=== PATIENT | male | born 1945 | race Caucasian/White ===

== ENCOUNTER → 2023-10-22 10:40 | Outpatient (REF) | payer OTHER, SELFPAY | LOC: RAD 10:40 | PROVIDERS: ATTENDING PHYSICIAN Internal Medicine Critical Care Medicine; FAMILY PHYSICIAN Family Medicine | DX: R05.3 Chronic cough (principal); J32.9 Chronic sinusitis, unspecified | CPT/HCPCS: 70486 ==

== ENCOUNTER 2023-11-15 16:35 | Inpatient (IN) | payer OTHER, SELFPAY ==
[2023-11-13] VITALS (7 sets, daily range): BP systolic 126–138; BP diastolic 66–76; BMI 27.8
[2023-11-13 17:23] LABS: % Basophils 0.3 % (0-2); % Immature Granulocytes 0.5 % (0-0.5); % Monocytes 5.7 % (1.7-9.3); % Neutrophils 84.5 % (42.2-75.2); Absolute Immature Granulocytes 0.1 10^3/uL (0-0.05); Absolute Monocytes 0.7 10^3/uL (0.1-0.6); Absolute Neutrophils 9.7 10^3/uL (1.4-6.5); Hematocrit 49.3 % (39.0-52.0); Hemoglobin 16.2 g/dL (13.0-18.0); Mean Corp Hgb Conc. 32.9 g/dL (33.0-37.0); Mean Corpuscular Volume 88.4 fL (80.0-94.0); Mean Platelet Volume 9.7 fL (7.4-10.4); Nucleated Red Blood Cells % 0 % (-); Platelet Count 284 10^3/uL (130-400); Red Blood Cell Count 5.58 10^6/uL (4.70-6.10); White Blood Cell Count 11.5 10^3/uL (4.8-10.8)
--- NOTE | 2023-11-13 17:23 | ED.GENMED ---
History of Present Illness
General
Chief Complaint: Dizziness
Source: patient and family
Exam Limitations: none
Time Seen by Provider: 11/13/23 17:14
Travel History
Have you had any contact with someone who has COVID-19?: No
Do you have any symptoms of coronavirus? Fever > 100 degrees, chills, cough, shortness of breath, sore throat, loss of taste or smell, muscle aches, or headache?: No
History of Present Illness
History of Present Illness:
See MDM
Past History
Past History
ED Past Medical History: CAD, COPD and HTN
ED Past Surgical History: Cardiac (Bypass)
Social History
Tobacco: Non-smoker
Alcohol: None
Phy Exam
Physical Exam
Physical Exam:
See MDM
Course
Orders/Labs/Results
Orders:
Orders
11/13/23 16:26
Electrocardiogram (*1) Urgent
Reason for Study: Chest Pain
EKG- Treatment ONCE
11/13/23 17:11
Complete Blood Count/With Diff Urgent
Comprehensive Metabolic Panel Urgent
Troponin I Urgent
11/13/23 17:21
0.9% Sodium Chloride 1000 ml [Nss] 1,000 ml IV BOLUS
11/13/23 17:22
CT Head W/o Iv Contrast Urgent
Comment:
Reason For Exam: Dizziness
11/13/23 17:23
Meclizine [Antivert] 25 mg PO NOW STA
11/13/23 18:22
Potassium Chloride [KCl] 40 meq PO NOW STA
11/13/23 18:26
Ondansetron Injectable [Zofran] 4 mg IV NOW STA
11/13/23 18:27
diazePAM [Valium Injection] 2 mg IV NOW STA
Abnormal Lab Results
11/13/23
17:11
WBC 11.5 H 10^3/uL
(4.8-10.8)
MCHC 32.9 L g/dL
(33.0-37.0)
Abs Immat Gran (auto) 0.1 H 10^3/uL
(0-0.05)
Absolute Neuts (auto) 9.7 H 10^3/uL
(1.4-6.5)
Absolute Lymphs (auto) 1.0 L 10^3/uL
(1.2-3.4)
Absolute Monos (auto) 0.7 H 10^3/uL
(0.1-0.6)
Neutrophils % 84.5 H %
(42.2-75.2)
Lymphocytes % 9.0 L %
(20.5-51.1)
Potassium 3.3 L mmol/L
(3.5-5.1)
Chloride 94 L mmol/L
(98-107)
Carbon Dioxide 33 H mmol/L
(22-30)
BUN 28 H mg/dl
(9-20)
Glucose 205 H mg/dl
(70-99)
11/13/23 17:11
11/13/23 17:11
Vital Signs
Initial and Last Documented VS:
Initial Vital Signs
Temp Pulse Resp BP Pulse Ox
97.6 F 88 20 132/68 92
11/13/23 16:20 11/13/23 16:20 11/13/23 16:20 11/13/23 16:20 11/13/23 16:20
Last Documented Vital Signs
Temp Pulse Resp BP Pulse Ox
97.6 F 88 20 132/68 92
11/13/23 16:20 11/13/23 16:20 11/13/23 16:20 11/13/23 16:20 11/13/23 16:20
MDM/Problems Addressed
Differential Diagnosis Includes:
HPI and MDM Narrative:
78-year-old male presenting with dizziness. He noted Wednesday. Patient states he took some of his normal medicine and had 2 alcoholic drinks. He states ever since then, his dizziness has gotten worse. It is worse with certain head movements.
It is worse when he stands up quickly. On exam, patient is dehydrated. He has very dry mucous membranes. He acknowledges that he has not been eating or drinking since he has been dizzy. He does not think he has a history of vertigo.
He has normal finger-nose. However, patient is very symptomatic with eyes open and with eyes closed. Will obtain CT head and provide IV fluids.
Physical exam
General: Well appearing and non-toxic
HEENT: protecting airway. Dry mucous membranes. EOMI. Right TM cerumen impaction
Neck: supple
CV: No evidence of cyanosis. Regular rate and rhythm
Resp: No accessory muscle use
Abd: Non-distended
Extremities: No deformities.
Neuro: alert. Normal finger-nose bilaterally
Psych: Normal affect
Skin: Intact
Problems Addressed including Acute and Chronic Conditions affecting care:
1. Dizziness
Acuity: acute
Prognosis: stable
Details: Given symptoms little worse with head movement, will obtain CT head and provide meclizine.
2. Dehydration
Acuity: acute
Prognosis: stable
Details: Will start IV fluid
3. Hypokalemia
Acuity: acute
Prognosis: stable
Details: Likely in the setting of poor p.o. intake. Will replete orally
Updates
6:30 PM after IV fluids and meclizine, patient states he is not better. We did attempt to ambulate the patient and he is extremely unsteady on his feet. Will give Zofran for nausea and will give dose of IV Valium. Given his persistent symptoms,
will admit
Differential Diagnosis (but not limited to): CVA, dehydration, vertigo
Testing considered: CT angio head and neck
Drug therapy (if applicable): OTC meds, please see d/c instruction regarding Rx drugs
Amount and/or Complexity of Data Reviewed
Clinical info obtained from: Patient
External data reviewed: N/A
Labs I independently reviewed (but not limited to): HypoK, Hyperglycemia
Radiology: The CT scan was personally and independently reviewed. In addition, official CT report reviewed.
Pulse Ox: not hypoxic
EKG independently reviewed: Sinus rhythm, right bundle branch block, no STEMI
[employer] Supervisor: Sinus rhythm
Critical Care: N/A
Risk of Complication:
Social Determinants of health: Good social support
Discussed with other providers: Hospitalist
Escalation of Care includes Admit/Obs: Given the persistent dizziness and unsteady gait, will admit
Occasional wrong word or 'sound a like' substitutions may have occurred due to the inherent limitations of voice recognition software. Read the chart carefully and recognize, using context, where substitutions have occurred.
*Critical Care Note
Total Time (30-74mins, 75-104mins- exclusive of procedures): Not Applicable
ED Attending Note
-
Portions of this chart may have been created with voice recognition software.� Occasional wrong word or��sound alike� substitutions may have occurred due to the inherent limitations of voice recognition software.
Discharge Plan
Departure
Patient Disposition: Admit
Date of Disposition: 11/13/23
Time of Disposition: 18:29
Admit to: Med/Surg
Presentation/result/management discussed w/ accepting MD/DO: Hospitalist
Discharge Problem:
Dizziness, Hypokalemia, Acute hyperglycemia
Referrals:
Neri Bui DO [Family Provider] -
Interventions
Interventions:
*Risk Screen - Suicide Last Done: 11/13/23 16:20
*General Assessment Last Done: 11/13/23 16:20
*Neglect/Abuse Screening Last Done: 11/13/23 16:20
Discharge Date and Time
Print Language: [place] CITIZ[place]
[2023-11-13] MEDS: ANTIVERT 25 MG PO (17:30)
[2023-11-13] MEDS: NSS 1000 IV (17:32)
[2023-11-13 17:43] LABS: ALT (SGPT) 24 U/L (0-50); AST (SGOT) 30 U/L (17-59); Albumin 4.4 g/dl (3.5-5.0); Alkaline Phosphatase 61 U/L (38-126); Blood Urea Nitrogen 28 mg/dl (9-20); Calcium 9.7 mg/dl (8.4-10.2); Carbon Dioxide 33 mmol/L (22-30); Chloride 94 mmol/L (98-107); Glucose 205 mg/dl (70-99); Potassium 3.3 mmol/L (3.5-5.1); Sodium 140 mmol/L (135-145); Total Bilirubin 1.1 mg/dl (0.2-1.3); Total Protein 7.8 g/dl (6.3-8.2); eGFR > 60.00
[2023-11-13 17:55] LABS: Troponin I 0.012 ng/ml
[2023-11-13] MEDS: KCL 40 MEQ PO (18:32)
[2023-11-13] MEDS: VALIUM INJECTION 2 MG IV ×2 (18:33→20:22)
[2023-11-13] MEDS: ZOFRAN 4 MG IV (18:33)
--- NOTE | 2023-11-13 19:23 | PHANOTE ---
Addendum entered by Kulwant Ascencio 11/13/23 21:18:
11/13/2023, med rec tech, the medication that the pt. was referring to was Prevagen per pt.
Addendum entered by Kulwant Ascencio 11/13/23 19:26:
11/13/2023, med rec tech, last time pt. took this med. was Wednesday (11/10/2023) per pt.
Original Note:
11/13/2023, med rec tech, spoke to pt. to obtain their med. history; per pt., he states that he was just prescribed a diabetes med. that he takes once daily in the morning; pt. states that he takes one 10 mg tablet of this med. in the morning and he
believes that it starts with the letter 'f' or 'p' but is unsure; pt. has no pharmacy fill data and this med. is not in [facility].
--- NOTE | 2023-11-13 20:06 | HPS.HSE ---
Family Physician
-
Family Physician: Neri Bui
Chief Complaint
-
Dizziness
History of Present Illness
Patient is a 78y M with PMH significant for ASCVD, hypertension and DM-II who presents to ED complaining of dizziness. Patient states that he developed sudden onset of dizziness, room spinning, unsteady gait on Wednesday evening. He notes that
his symptoms have persisted since that time - worse with sitting upright or standing. Best when lying supine. He does report dizzy sensation with lying in either recumbent position as well. He had associated N/V x 1 episode on . None
since. He denies any associated headache, numbness, tingling, weakness, etc. He denies falling, but states that he feels like he will fall if he attempts to stand / ambulate.
Patient denies any prior history of similar symptoms.
Patient states that he took two gabapentin tablets on Wednesday evening and had two alcoholic drinks shortly thereafter. He believes this may have triggered his symptoms. However, he has noted no improvement since that time - despite no further
gabapentin or alcohol.
Patient has had chronic cough x 4 years for which he is followed by Pulmonary.
In addition to gabapentin, he was recently prescribed azithromycin [id number].
Medical History
Past Medical History
Past Medical History: Reports Other
Additional Past Medical History:
ASCVD
Hypertension
COPD
DM-II
Chronic Cough
Past Surgical History: Reports Other
Additional Past Surgical History:
CABG x 2
Herniorrhaphy
Social History
Tobacco: Former Smoker (Quit smoking 20 years ago. Approx 30 pack years total use.)
Alcohol: Occasional (Not daily / regular use.)
Drug: None
Family History
Family History: Diabetes
Allergies / Home Medications
Allergies reflects when Allergies were last updated in [facility].
Home Medications with original date entered in [facility]
Allergy/Medication List:
Allergies
Allergy/AdvReac Type Severity Reaction Status Date / Time
Sulfa (Sulfonamide Allergy Severe Anaphylaxis Verified 11/13/23 20:12
Antibiotics)
Home Medications
Tresiba Flextouch 45 unit SC HS 11/13/23
amlodipine 5 mg tablet 5 mg PO HS 11/13/23
azithromycin 250 mg tablet 250 mg PO Q48H@2200 11/13/23
budesonide 0.5 mg/2 mL suspension for nebulization 0.5 mg inhalation R DAILY 11/13/23
chlorthalidone 25 mg tablet 25 mg PO DAILY 11/13/23
fluticasone fur. 200 mcg-umeclid 62.5 mcg-vilant 25 mcg inhalat.powder (Trelegy Ellipta) 1 inh inhalation R DAILY 11/13/23
gabapentin 100 mg capsule 200 mg PO HS 11/13/23
glipizide 5 mg tablet, extended release 24 hr 5 mg PO HS 11/13/23
metformin 500 mg tablet 1,000 mg PO BID 11/13/23
montelukast 10 mg tablet 10 mg PO HS 11/13/23
omeprazole 20 mg capsule,delayed release 20 mg PO HS 11/13/23
pravastatin 40 mg tablet 40 mg PO HS 11/13/23
tadalafil 20 mg tablet 20 mg PO DAILY PRN ED 11/13/23
Review of Systems
-
History Source: Patient
A 12 point ROS was completed and negative except as noted: Yes
Constitutional: Reports Fatigue; Denies Fever or Chills
EENT: Denies Sore Throat or Runny Nose
Respiratory: Reports Cough; Denies Hemoptysis or Trouble Breathing
Cardiac: Denies Chest Pain or Palpitations
Abdomen/GI: Reports Nausea and Vomiting; Denies Abdominal Pain, Diarrhea, Constipated, Bloody Stools, Black Stools or Anorexia
: Denies Dysuria, Frequency or Flank Pain
Musculoskeletal: Denies Joint Pain or Edema
Neurological: Reports Dizzy; Denies Headache, Weakness or Numbness
Psych: Denies Depression or Anxiety
Physical Exam
Vital Signs
Vital Signs
Temp Pulse Resp BP Pulse Ox
97.6 F 107 20 138/73 98
11/13/23 16:20 11/13/23 19:38 11/13/23 19:38 11/13/23 19:38 11/13/23 19:38
Physical Exam
General: Other (78y M in no acute distress.)
HEENT: Moist mucous membranes, PERRLA and Other (No nystagmus appreciated on exam. Pos subjective dizziness with upright posture.)
Respiratory: Clear; No Wheezes, Rales or Rhonchi
Cardiac: S1/S2 and Irregular Rhythm; No Murmur
GI: Soft, Non Tender, Non Distended and Normal Bowel Sounds
Musculoskeletal: No Clubbing, No Cyanosis and No Edema
Neuro: AO x 3 and Nonfocal/grossly intact
Psych: No Anxious or Depressed
Laboratory Results
-
11/13/23 17:11
11/13/23 17:11
Laboratory Results
Total Bilirubin 1.1 mg/dl (0.2-1.3) 11/13/23 17:11
AST 30 U/L (17-59) 11/13/23 17:11
ALT 24 U/L (0-50) 11/13/23 17:11
Alkaline Phosphatase 61 U/L (38-126) 11/13/23 17:11
Troponin I 0.012 ng/ml 11/13/23 17:11
Impression/Plan
-
A/P: Patient is a 78y M with PMH significant for ASCVD, COPD and DM-II who presents to ED complaining of dizziness x 4 days.
Dizziness / Vertigo
- Observe overnight for further evaluation and treatment.
- Persistent dizziness / room spinning sensation despite meclizine / Valium in the ED.
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
- Check MR brain in the AM. Neuro eval if any noted abnormality.
- PT / OT evaluations.
- Continue supportive care including meclizine / Valium / IVFs, etc.
- Follow for clinical improvement.
Sinus Arrhythmia
ASCVD
- EKG with sinus arrhythmia. No evidence of acute ischemia.
- History of CAD with prior CABG but has had no follow-up in the past 20 years.
- QTc is somewhat prolonged and will hold further azithromycin / avoid other QT prolonging medications.
- Check Echo.
- Monitor on telemetry.
COPD
Chronic Cough
Hypoxemia
- Continue budesonide. Nebs PRN.
- Hold gabapentin for now.
- SpO2 in the 80s here in the ED.
- Check CXR. Continue O2 and wean off as able.
Benign Hypertension
- Stable. Continue amlodipine with holding parameters.
- Hold chlorthalidone for now.
- Adjust regimen as needed.
DM-II
- Stable. Hold PO medications.
- Continue basal insulin.
- Follow glucose and cover with SSI as needed.
- Update A1C.
DVT Prophylaxis: Lovenox
Code Status: Full
[2023-11-13] MEDS: PULMICORT INH (22:41)
[2023-11-13 22:50] LABS: Glucose - Point of Care 183 mg/dl (70-99)
[2023-11-13] MEDS: NORVASC 5 MG PO (23:00)
[2023-11-13] MEDS: PRAVACHOL 40 MG PO (23:00)
[2023-11-13] MEDS: PROTONIX 40 MG PO (23:00)
[2023-11-13] MEDS: SINGULAIR 10 MG PO (23:01)
[2023-11-13] MEDS: LR 1000 IV (23:01)
[2023-11-13] MEDS: LANTUS 0.400000000000000022 UNITS SC (23:04)
[2023-11-14] VITALS (8 sets, daily range): BP systolic 112–156; BP diastolic 65–86; PULSE 57–107; O2SAT 98–100; BMI 24.5
--- NOTE | 2023-11-14 04:57 | PTCARENOTE ---
Pt admitted to unit from ED. Pt pulled over to bed from stretcher by nursing staff. AAXO3. VS: Temp 97.9, Pulse 78, Resp Rate 18, BP 132/66, and O2 96 on 3L NC. Pt reports 'dizziness and room spinning. It helps to have my eyes closed.' Pt oriented
to room with call pathak in reach. Plan of care ongoing.
Pt arousable for 04:00 neuro checks. Pt denies dizziness; 'I haven't tried to get up yet.' Plan of care ongoing.
[2023-11-14 08:21] LABS: Glucose - Point of Care 142 mg/dl (70-99)
[2023-11-14] MEDS: PULMICORT 0.5 MG INH (08:32)
[2023-11-14 08:49] LABS: Hematocrit 44.2 % (39.0-52.0); Hemoglobin 14.6 g/dL (13.0-18.0); Mean Corpuscular Hgb 29.1 pg (27.0-31.0); Mean Platelet Volume 10.1 fL (7.4-10.4); Platelet Count 269 10^3/uL (130-400); Red Blood Cell Count 5.02 10^6/uL (4.70-6.10); White Blood Cell Count 11.2 10^3/uL (4.8-10.8)
[2023-11-14] MEDS: NOVOLOG FLEXPEN-MODERATE RESISTANCE SC ×3 (08:53→17:25)
[2023-11-14] MEDS: LOW STRENGTH ASPIRIN 81 MG PO (09:05)
[2023-11-14 09:07] LABS: Blood Urea Nitrogen 27 mg/dl (9-20); Calcium 9.3 mg/dl (8.4-10.2); Carbon Dioxide 38 mmol/L (22-30); Chloride 98 mmol/L (98-107); Estimated Creatinine Clearance 62 ml/min; Glucose 108 mg/dl (70-99); HDL Cholesterol 52 mg/dl; LDL Cholesterol, Calculated 81 mg/dl; Potassium 3.2 mmol/L (3.5-5.1); Sodium 141 mmol/L (135-145); Total Cholesterol 155 mg/dl (50-199); Triglyceride 110 mg/dl (10-149); Very Low Density Lipoprotein 22 mg/dl (0-30); eGFR > 60.00
[2023-11-14 09:35] LABS: TSH Reflex To Free T4 1.65 uIU/ml (0.47-4.68)
--- NOTE | 2023-11-14 10:28 | W.PN.HOSP.TC ---
Today's Communication/Plan
-
see bold
Assessment / Plan
Assessment / Plan
78y M with PMH significant for ASCVD, COPD and DM-II who presents to ED complaining of dizziness x 4 days.
Gen: NAD, AAOx3.
Eyes: EOMI, PERRLA, no scleral icterus.
Neck: supple.
CV: RRR, +S1/S2, no m/r/g.
Resp: CTAB, no rales, wheezes, or rhonchi.
Abd: +BS, soft, NT, ND
Skin: No rashes.
Neuro: CN 2-12 intact, non-focal.
Psych: Normal mood and affect.
Dizziness / Vertigo
- Persistent dizziness / room spinning sensation despite meclizine / Valium in the ED.
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
- Check MRI brain. Neuro eval if any noted abnormality.
- PT / OT evaluations.
- Continue supportive care including meclizine / Valium / IVFs, etc.
Sinus Arrhythmia
ASCVD
- EKG with sinus arrhythmia. No evidence of acute ischemia.
- History of CAD with prior CABG but has had no follow-up in the past 20 years.
- QTc is somewhat prolonged and will hold further azithromycin / avoid other QT prolonging medications.
- Check Echo.
- Monitor on telemetry.
COPD
Chronic Cough
Hypoxemia
- Continue budesonide. Nebs PRN.
- Hold gabapentin for now.
- SpO2 in the 80s here in the ED, currently on 3L NC O2.
- CXR: No evidence of active cardiopulmonary disease.
- Continue O2 and wean off as able.
Essential hypertension
- Stable. Continue amlodipine with holding parameters.
- Holding chlorthalidone for now.
DM-II
- Stable. Hold PO medications.
- Continue basal insulin.
- Follow glucose and cover with SSI as needed.
- Update A1C.
FULL/Lovenox
Anticipated Discharge: Within 24 hours
Subjective/Interval History
-
Date of Service: November 14, 2023
Pt with persistent dizziness with head movement. Denies CP/SOB.
Objective Data
-
Labs:
Laboratory Results
11/14/23
07:43
WBC 11.2 H
Hgb 14.6
Hct 44.2
Plt Count 269
Sodium 141
Potassium 3.2 L
Chloride 98
Carbon Dioxide 38 H
BUN 27 H
Creatinine 0.9
Glucose 108 H
Calcium 9.3
Vital Signs:
Vital Signs
Temp Pulse Resp BP Pulse Ox
98.1 F 77 16 112/68 96
11/14/23 07:29 11/14/23 08:37 11/14/23 08:37 11/14/23 07:29 11/14/23 08:37
I&O
11/13/23 11/14/23 11/15/23
06:59 06:59 06:59
Intake Total 1000 / 1000
Output Total 400 / 400
Balance 600 / 600
[2023-11-14 11:21] LABS: Glycohemoglobin (HgbA1c) 8.5 % (4.0-5.6)
[2023-11-14] MEDS: ANTIVERT 25 MG PO ×2 (11:32→22:58)
--- NOTE | 2023-11-14 11:58 | CM ---
Patient seen bedside.
IA completed.
patient lives with spouse in a 1 story home with 1 step to enter.
Patient independent prior to admission without assistive devices.
patient drives.
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
PCP: Dr Bui
Pharmacy: [facility]
Plan: home no needs anticiapted.
[2023-11-14 11:59] LABS: Glucose - Point of Care 134 mg/dl (70-99)
[2023-11-14] MEDS: LR 1000 IV (14:24)
[2023-11-14] MEDS: PULMICORT INH (16:08)
[2023-11-14 16:54] LABS: Glucose - Point of Care 113 mg/dl (70-99)
[2023-11-14] MEDS: LOVENOX 40 MG SC (17:26)
--- NOTE | 2023-11-14 18:41 | W.PN.UPDATE ---
Update Note
Progress Note Update
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
Aspirin was added by admitting provider
Neurology consulted
Will order MRI cervical spine for further evaluation
[2023-11-14] MEDS: VALIUM INJECTION 5 MG IV (20:29)
[2023-11-14 21:29] LABS: Glucose - Point of Care 186 mg/dl (70-99)
[2023-11-14] MEDS: SINGULAIR 10 MG PO (22:57)
[2023-11-14] MEDS: PRAVACHOL 40 MG PO (22:57)
[2023-11-14] MEDS: PROTONIX 40 MG PO (22:57)
[2023-11-14] MEDS: NORVASC 5 MG PO (22:57)
[2023-11-14] MEDS: LANTUS 0.400000000000000022 UNITS SC (22:58)
[2023-11-14] MEDS: LR IV (22:58)
[2023-11-15] VITALS (7 sets, daily range): BP systolic 117–150; BP diastolic 61–89; PULSE 90–116; BMI 27.0
[2023-11-15] MEDS: LR 1000 IV ×2 (02:23→16:00)
[2023-11-15 07:22] LABS: Glucose - Point of Care 56 mg/dl (70-99)
[2023-11-15] MEDS: NOVOLOG FLEXPEN-MODERATE RESISTANCE SC ×2 (07:26→12:25)
[2023-11-15 08:11] LABS: Glucose - Point of Care 82 mg/dl (70-99)
[2023-11-15] MEDS: LOW STRENGTH ASPIRIN 81 MG PO (08:29)
[2023-11-15] MEDS: PLAVIX 75 MG PO (08:29)
[2023-11-15] MEDS: PULMICORT 0.5 MG INH ×2 (08:51→20:14)
--- NOTE | 2023-11-15 09:06 | CON.NEURO4 ---
Addendum entered and electronically signed by Dewey Herrera MD 11/15/23 14:32:
Studies reviewed.
I have personally examined the patient. I reviewed and agree with the DIRECTOR OF PUBLIC WORKS's Note.
My addenda:
Awake, alert, interactive. No acute distress. Wearing oxygen.
Speech intact.
Follows 2-step requests w/o difficulty. No tremor.
Extra-ocular movements grossly intact.
Facial movements full and symmetric. Hearing intact to normal conversational volume.
Normal UE movements bilaterally.
Neck: full ROM.
Chest: no dyspnea
Heart: no JVD
Ext: (-) Clubbing, (-) Cyanosis, (-) Edema
IMPRESSIONS/RECOMMENDATIONS:
Abrupt onset of dizziness with gait dysfunction
Patient found by MRI of brain to have a left cerebellar acute ischemic stroke, medially. Patient also found to have orthostatic hypotension
Continue dual antiplatelet therapy with aspirin and clopidogrel for total of 21 days then clopidogrel alone as the patient was using aspirin at the time of hospitalization.
Treatment of orthostasis by means of abdominal binder and increasing water intake
Consideration for revision of medications which may produce hypotension
Goal of normoglycemia
Rehabilitation evaluations
Follow cervical spine MRI imaging
D/W patient
Will continue to follow as outpatient.
Original Note:
Documented by User: Berenice Lynn NP 11/15/23 10:28
Consultation - Neurology 4
-
CONSULTING PHYSICIAN: Dewey Herrera MD
REFERRING PHYSICIAN: Hospitalists/Dr. Gonzalez
DICTATED BY: CYRIL Torres
DATE/TIME OF REQUEST: 11/14/23
DATE/TIME OF CONSULTATION: 11/15/23
Reason for Consultation: CVA
History of Present Illness:
This is a 78-year-old right-handed male who has presented to the hospital on 11/13/23 with report of dizziness starting three days earlier on 11/10/23. Patient reports that five days ago on 11/10/23 in the evening he took two gabapentin capsules which
he takes for his chronic cough, and then proceeded to have two alcoholic beverages. Shortly after doing this he reports developing sudden onset dizziness and inability to walk due to ataxia. Patient reports that lying still resolves his symptoms.
Sitting/standing and moving his head quickly exacerbate his symptoms. He reports one episode of vomiting on 11/11/23 but otherwise denies nausea/vomiting. He initially attributed his symptoms to the gabapentin and alcohol, but after his symptoms did
not improve over several days, he decided to come to the ER for evaluation on 11/13/23. CT head was obtained and is negative for any acute abnormalities. He was outside of the time window for TNK/IAT. He received Valium and meclizine in the ER. MRI
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 DAPT was initiated with aspirin and Plavix and Neurology was consulted. Today (11/15/23), patient reports
feeling mildly improved but his symptoms are still persistent. He has to use a walker with ambulation now and even with that he reports severe difficulty ambulating. Orthostatic vital signs are positive. He denies any headache, vision changes,
speech/swallow difficultly, numbness, weakness, hearing changes, chest pain, palpitations, and shortness of breath. He denies any recent fever or illness but does not that he has had a chronic cough for about 4 years and is followed by Pulmonary. He
denies any history of vertigo, events similar to this in the past, and he was unaware of a previous stroke. He is taking aspirin 81mg daily for cardiac purposes and denies missing any doses.
Past Medical History: HTN, CAD, [place], COPD, NIDDM, chronic cough, cough variant asthma
Surgical History: CABG x2, herniorrhaphy
Family History: Reviewed and noncontributory.
Social History: Former smoker. Occasional alcohol. Denies illicit drug use.
Allergies: Sulfa.
Home Medications: See below.
Review of Symptoms:
Patient denies any fever, headache, chest pain, shortness of breath, GI or symptoms.
�Per the HPI.�All systems are reviewed negative except above.
Physical Exam:
The patient is afebrile, abdomen is nondistended, breathing is unlabored, skin is warm and dry, no edema.
NIH Stroke Scale:
I performed the NIH stroke scale on the patient on 11/15/23 at 0915. The patient scored 0 points on the NIH stroke scale assessment, which were assigned as follows: See below.
Neurologic Examination:
The patient is awake, alert and oriented x 3. He is able to follow commands and answer questions appropriately. There is no aphasia or dysarthria. On cranial nerve assessment, pupils are 3 mm bilateral, round and reactive to light and
accommodation. Visual barnes are full. Extraocular movements are intact. No nystagmus. Facial sensations are intact and bilaterally symmetrical, there is no facial asymmetry. Hearing is intact bilaterally to normal conversation volume. Tongue palate
and uvula are midline. Sternocleidomastoid strengths are full bilaterally. Motor strengths are 5/5 bilateral upper and lower extremities on medical research [place] scale. There is no drift or involuntary movement noted. Deep tendon reflexes are 2+
bilateral upper and lower extremities and Babinski is absent bilaterally. There was no extinction noted on double simultaneous stimulation. Coordination is intact by finger to nose bilaterally.
Lab Results: See below.
Neuro Imaging:
1. MRI Brain 11/14/23: As described, foci of acute to subacute infarction involving the left cerebellum. Focal encephalomalacia involving the right frontoparietal junction, compatible with old infarction. On sagittal images at C3-4, there appears to
be a degree of compression of the cervical spinal cord from disc/osteophyte complex. If further evaluation of the cervical spine is desired, consideration for MRI.
Differentials for the patient's presentation include:
1. Subacute left cerebellar ischemic infarct; etiology likely small vessel disease.
2. Old frontoparietal junction ischemic stroke.
3. Orthostatic hypotension.
4. NIDDM, hbA1c is 8.5.
5. Possible cervical spine stenosis as suggested by MRI brain imaging.
Patient has the following risk factors for their symptoms: NIDDM, HTN, HLD, age, former smoker, old stroke on MRI brain
IV Tenecteplase/IAT candidacy: Not a candidate due to outside of time window.
Recommendations:
-Continue DAPT with aspirin 81mg and Plavix 75mg daily for 21 days. After 21 days, discontinue aspirin and continue Plavix 75mg daily only, indefinitely.
-CTA head/neck ordered/pending.
-Abdominal binder, slow position changes, increased water intake for orthostatic hypotension.
-Goal normotension.
-LDL goal <70. LDL is 81. Home pravastatin increased from 40mg to 80mg daily.
-Goal normoglycemia, hbA1c is 8.5.
-NIHSS and neurological checks per unit guidelines.
-Provide patient with a stroke education packet.
-PT/OT/ST evaluations.
-DVT prophylaxis.
-Can follow-up on MRI brain findings about cervical spine as an outpatient with MRI cervical spine imaging, patient is asymptomatic.
-Patient should follow-up with Neurology as an outpatient, may see the DIRECTOR OF PUBLIC WORKS or one of the physicians.
Discussed patient care with: Dr. Herrera, the patient
Vital Signs and Labs
-
Vital Signs and Labs:
Vital Signs
Temp Pulse Resp BP Pulse Ox
97.9 F 61 16 123/61 95
11/15/23 07:30 11/15/23 08:57 11/15/23 08:57 11/15/23 07:30 11/15/23 08:57
Lab Results
11/14/23 07:43
11/14/23 07:43
Sodium 141 mmol/L (135-145) 11/14/23 07:43
Potassium 3.2 mmol/L (3.5-5.1) L 11/14/23 07:43
BUN 27 mg/dl (9-20) H 11/14/23 07:43
Glucose 108 mg/dl (70-99) H 11/14/23 07:43
Calcium 9.3 mg/dl (8.4-10.2) 11/14/23 07:43
LDL Cholesterol, Calc 81 mg/dl 11/14/23 07:43
Medications
-
Active Medications
Generic Name Dose Route Start Last Admin
Trade Name Freq PRN Reason Stop Dose Admin
Acetaminophen 650 mg 11/13/23 22:11
Acetaminophen 325 Mg Tablet PO 12/11/23 22:10
Q4HPRN PRN
Mild Pain / Temp > 101
Albuterol/Ipratropium 3 ml 11/13/23 22:11
Ipratropium 0.5/Albuterol 3 Mg (3 Ml Ampul) INH
R Q4HPRN PRN
shortness of breath
Protocol
Amlodipine Besylate 5 mg 11/13/23 22:30 11/14/23 22:57
Amlodipine 5 Mg Tablet PO 12/11/23 22:29 5 mg
HS HEMANT Administration
Aspirin 81 mg 11/14/23 08:00 11/15/23 08:29
Aspirin 81 Mg Chewable Tablet PO 12/12/23 07:59 81 mg
DAILY HEMANT Administration
Budesonide 0.5 mg 11/13/23 22:30 11/15/23 08:51
Budesonide (Pulmicort Respules) 0.5 Mg/2 Ml INH 0.5 mg
R BID HEMANT Administration
Protocol
Clopidogrel Bisulfate 75 mg 11/15/23 08:00 11/15/23 08:29
Clopidogrel 75 Mg Tablet PO 12/13/23 07:59 75 mg
DAILY HEMANT Administration
Dextrose 12.5 grams 11/13/23 22:11
Dextrose 50% (0.5 Grams/Ml) 50 Ml Syringe IV 12/11/23 22:10
[id number] PRN
hypoglycemia
Protocol
Diazepam 5 mg 11/13/23 22:11 11/14/23 20:29
Diazepam 10 Mg/2 Ml Inj IV 12/11/23 22:10 5 mg
Q6HPRN PRN Administration
Dizziness
Enoxaparin Sodium 40 mg 11/14/23 18:00 11/14/23 17:26
Enoxaparin Sodium 40 Mg/0.4 Ml Syringe SC 12/12/23 17:59 40 mg
QPM HEMANT Administration
Glucagon 1 mg 11/13/23 22:11
Glucagon 1 Mg Vial IM 12/11/23 22:10
PRN PRN
hypoglycemia
Protocol
Lactated Ringer's 1,000 mls @ 100 mls/hr 11/13/23 22:11 11/15/23 02:23
Lr IV 1,000 mls
.Q10H HEMANT Administration
Insulin Glargine 40 units/ 0.4 mls @ 0 mls/hr 11/13/23 22:30 11/14/23 22:58
Device SC 12/11/23 22:29 0.4 mls
HS HEMANT Administration
As Directed
Insulin Aspart 0 units 11/14/23 07:30 11/15/23 07:26
Insulin Aspart Moderate Resistance 300 Units/3 Ml Pen.Injctr SC 12/12/23 07:29 Not Given
AC HEMANT
Protocol
Meclizine HCl 25 mg 11/13/23 22:11 11/14/23 22:58
Meclizine 25 Mg Tablet PO 12/11/23 22:10 25 mg
Q8HPRN PRN Administration
Dizziness
Montelukast Sodium 10 mg 11/13/23 22:30 11/14/23 22:57
Montelukast Sodium 10 Mg Tablet PO 12/11/23 22:29 10 mg
HS HEMANT Administration
Pantoprazole Sodium 40 mg 11/13/23 22:30 11/14/23 22:57
Pantoprazole 40 Mg Delayed Release Tablet PO 12/11/23 22:29 40 mg
HS HEMANT Administration
Pravastatin Sodium 80 mg 11/15/23 08:51
Pravastatin 40 Mg Tablet PO 12/11/23 22:29
HS HEMANT
Home Medications
�Medication �Instructions �Recorded
Prevagen 1 cap PO DAILY Supplement 11/13/23
Tresiba Flextouch 45 unit SC HS Diabetes 11/13/23
amlodipine 5 mg tablet 5 mg PO HS Blood Pressure 11/13/23
azithromycin 250 mg tablet 250 mg PO Q48H@2200 Infection 11/13/23
budesonide 0.5 mg/2 mL suspension 0.5 mg inhalation R DAILY 11/13/23
for nebulization Lung/Breathing Issues
chlorthalidone 25 mg tablet 25 mg PO DAILY Antihypertensive; 11/13/23
Diureti
fluticasone fur. 200 mcg-umeclid 1 inh inhalation R DAILY 11/13/23
62.5 mcg-vilant 25 mcg Lung/Breathing Issues
inhalat.powder (Trelegy Ellipta)
gabapentin 100 mg capsule 200 mg PO HS Pain 11/13/23
glipizide 5 mg tablet, extended 5 mg PO HS Diabetes 11/13/23
release 24 hr
metformin 500 mg tablet 1,000 mg PO BID Diabetes 11/13/23
montelukast 10 mg tablet 10 mg PO HS ASTHMA 11/13/23
omeprazole 20 mg capsule,delayed 20 mg PO HS GERD 11/13/23
release
pravastatin 40 mg tablet 40 mg PO HS High Cholesterol 11/13/23
tadalafil 20 mg tablet 20 mg PO DAILY PRN ED 11/13/23
Farxiga 10 mg PO Diabetes 11/14/23
NIH Stroke Score
Subsequent NIH Scale
Date of Subsequent NIH Scale: 11/15/23
Time of Subsequent NIH Scale: 09:15
NIH Stroke Score
Level of Consciousness: 0 - Alert
LOC Questions: 0-Answers both correctly
LOC Commands: 0-Performs both correctly
Best Horizontal Gaze: 0-Normal
Visual Barnes: 0=Normal, no visual loss
Facial Palsy: 0=Normal, symmetrical
Motor - Right Arm: 0=No drift 10 seconds
Motor - Left Arm: 0=No drift 10 seconds
Motor - Right Le-No drift 5 seconds
Motor - Left Le-No drift 5 seconds
Limb Ataxia: 0-Absent
Sensation: 0-Normal
Best Language: 0-No aphasia
Dysarthria: 0-Normal
Extinction and Inattention: 0-No abnormality
Total Score:: 0
Modified Alina (mRS) Score
Modified Uriah Scale (mRS): Moderately severe disability. Unable to attend to bodily needs/walk.
Score: 4
Alteplase Contraindication
Inclusion and Exclusion criteria reviewed: Yes
Reasons for NON-Tx with Thrombolytics ABSOLUTE Exclusions: Greater than 4.5 hrs from onset of sxs
IAT Contraindications: NIHSS < 6

Documented by User: Dewey Herrera MD 11/15/23 14:30
NIH Stroke Score
NIH Stroke Score
Total Score:: 0
Modified Uriah (mRS) Score
Score: 4
--- NOTE | 2023-11-15 09:38 | W.PN.HOSP.TC ---
Today's Communication/Plan
-
DAPT. Stroke workup in progress.
Assessment / Plan
Assessment / Plan
78y M with PMH significant for ASCVD, COPD and DM-II who presents to ED complaining of dizziness x 4 days.
Gen: NAD, AAOx3.
Eyes: EOMI, PERRLA, no scleral icterus.
Neck: supple.
CV: RRR, +S1/S2, no m/r/g.
Resp: CTAB, no rales, wheezes, or rhonchi.
Abd: +BS, soft, NT, ND
Skin: No rashes.
Neuro: CN 2-12 intact, ataxia present.
Psych: Normal mood and affect.
MRI of the brain:
foci of acute to subacute infarction involving the left cerebellum.
Focal encephalomalacia involving the right frontoparietal junction, compatible with old infarction.
On sagittal images at C3-4, there appears to be a degree of compression of the cervical spinal cord from disc/osteophyte complex. If further evaluation of the cervical spine is desired, consideration for MRI.
Acute ischemic stroke left cerebellum
- Persistent dizziness / room spinning sensation despite meclizine / Valium in the ED.
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
- Checked MRI brain and results as above. Neuro consulted last evening
- Dual antiplatelet therapy aspirin Plavix and high-dose statins
- Plan for CTA of the head and neck today.
- PT / OT evaluations.
- Discontinue IV fluids, Valium, Meclizine, etc.
Sinus Arrhythmia
ASCVD
- EKG with sinus arrhythmia. No evidence of acute ischemia.
- History of CAD with prior CABG but has had no follow-up in the past 20 years.
- QTc is somewhat prolonged and will hold further azithromycin / avoid other QT prolonging medications.
- Check Echo. Echo pending
- Monitor on telemetry.
COPD
Chronic Cough
Hypoxemia
- Continue budesonide. Nebs PRN.
- Hold gabapentin for now.
- SpO2 in the 80s here in the ED, currently on 3L NC O2.
- CXR: No evidence of active cardiopulmonary disease.
- Continue O2 and wean off as able.
- Assess for home oxygen needs upon discharge
Essential hypertension
- Stable. Continue amlodipine with holding parameters.
- Holding chlorthalidone for now.
DM-II
- Blood sugar trending down. Hold PO medications.
-Patient not eating much.
-Decrease from 40 to 10 units basal insulin.
- Follow glucose and cover with SSI as needed.
- Update A1C 8.5
FULL/Lovenox
Total time spent on today's encounter was 52 minutes which included time spent in counseling the patient/family regarding diagnosis and treatment plan as listed above, goals of care, and symptom management. Case was discussed with nursing staff,
specialists, and care coordinators/case management. All labs and imaging personally reviewed by me. Remainder the time spent in detailed review of previous records, lab data, imaging, and other medical provider documentation.
Anticipated Discharge: > 48 hours
Subjective/Interval History
-
Date of Service: November 15, 2023
Patient continues to have wobbliness, does not feel back to his baseline either. No slurred speech.
Objective Data
-
Vital Signs:
Vital Signs
Temp Pulse Resp BP Pulse Ox
97.9 F 61 16 123/61 95
11/15/23 07:30 11/15/23 08:57 11/15/23 08:57 11/15/23 07:30 11/15/23 08:57
I&O
11/14/23 11/15/23 11/16/23
06:59 06:59 06:59
Intake Total 1000 / 1000 3430 / 3430
Output Total 400 / 400 1750 / 1750
Balance 600 / 600 1680 / 1680
[2023-11-15 12:12] LABS: Glucose - Point of Care 76 mg/dl (70-99)
[2023-11-15 12:45] LABS: % Basophils 0.7 % (0-2); % Eosinophils 1.4 % (0-6); % Immature Granulocytes 0.4 % (0-0.5); % Lymphocytes 21.2 % (20.5-51.1); % Monocytes 9.4 % (1.7-9.3); % Neutrophils 66.9 % (42.2-75.2); Absolute Basophils 0.1 10^3/uL (0-0.2); Absolute Eosinophils 0.2 10^3/uL (0-0.7); Absolute Lymphocytes 2.2 10^3/uL (1.2-3.4); Hematocrit 47.3 % (39.0-52.0); Hemoglobin 15.8 g/dL (13.0-18.0); Mean Corp Hgb Conc. 33.4 g/dL (33.0-37.0); Mean Corpuscular Volume 86.8 fL (80.0-94.0); Mean Platelet Volume 9.8 fL (7.4-10.4); Nucleated Red Blood Cells % 0 % (-); Platelet Count 256 10^3/uL (130-400); Red Blood Cell Count 5.45 10^6/uL (4.70-6.10); Red Cell Dist. Width 12.9 % (11.5-14.5); White Blood Cell Count 10.4 10^3/uL (4.8-10.8)
[2023-11-15 13:13] LABS: Blood Urea Nitrogen 18 mg/dl (9-20); Calcium 9.8 mg/dl (8.4-10.2); Carbon Dioxide 34 mmol/L (22-30); Chloride 97 mmol/L (98-107); Estimated Creatinine Clearance 70 ml/min; Glucose 64 mg/dl (70-99); Potassium 2.9 mmol/L (3.5-5.1); Sodium 142 mmol/L (135-145); eGFR > 60.00
--- NOTE | 2023-11-15 14:23 | PTOTSP ---
SPEECH THERAPY SWALLOW EVALUATION:
Patient exhibits clinical signs of suspected pharyngeal dysphagia, with grossly functional oral swallow function at this time. Suspected pharyngeal dysphagia appears to be chronic given patient report of chronic throat clear/cough for past 4 years.
Pt reported he has seen Cargo Service Agent and ENT for this issue with no cause. However, patient remains at increased risk for aspiration and related complications given acute/subacute CVA and newly discovered compression of cervical spinal cord from
disc osteophyte complex per MRI. Given chronicity of dysphagia, clear CXR and WBC WNL at this time, stable respiratory status (patient breathing on room air), patient appears safe to remain on oral diet at this time. Recommend continue Regular
texture diet, thin liquids. Medications whole with liquid, one at a time. Aspiration precautions: Upright positioning; Alternate textures while eating/drinking; Small bites/sips; Slow rate of intake; Assistance as needed; Extra sauces/gravies; Avoid
dry textures; Throat clear as needed. Recommend close monitoring of CXR and labs; D/c oral diet if signs or symptoms of aspiration or a decline in mental or respiratory status. Recommend consider a Videofluoroscopic Swallowing Study to further
assess patient's swallow function, especially if any concern for aspiration and/or pneumonia. Speech therapy to follow, assess diet tolerance and modify as appropriate, determine indication for VSE if warranted, provide continued education regarding
aspiration risks/precautions, provide continued diagnostic swallow therapy as appropriate, and assess Speech/Language/Cognitive Communication skills. Discussed with RN, Dr. Wong, patient.
RECOMMEND:
1) Regular texture diet, thin liquids
2) Medications whole with liquid, one at a time
3) Aspiration precautions: Upright positioning; Alternate textures while eating/drinking; Small bites/sips; Slow rate of intake; Assistance as needed; Extra sauces/gravies; Avoid dry textures; Throat clear as needed. Recommend close monitoring of
CXR and labs; D/c oral diet if signs or symptoms of aspiration or a decline in mental or respiratory status
4) consider a Videofluoroscopic Swallowing Study if any concern for aspiration and/or pneumonia
5) Speech therapy to follow
--- NOTE | 2023-11-15 14:44 | CM ---
Chart reviewed and plan is to home when stable.
Plan; Home when stable.
[2023-11-15] MEDS: ANTIVERT 25 MG PO (14:48)
--- NOTE | 2023-11-15 16:25 | PTCARENOTE ---
Notified provider of patient's low blood sugars. Lantus adjusted. Also notified provider of patient's constipation and refusal of stool softeners. No further needs assessed at this time.
[2023-11-15 16:45] LABS: Glucose - Point of Care 152 mg/dl (70-99)
[2023-11-15] MEDS: LOVENOX 40 MG SC (17:11)
[2023-11-15] MEDS: KCL 270 MEQ IV (17:11)
[2023-11-15] MEDS: KCL 40 MEQ PO ×2 (17:12→19:56)
[2023-11-15] MEDS: NOVOLOG FLEXPEN-MODERATE RESISTANCE 1 UNITS SC (17:26)
[2023-11-15] MEDS: PROTONIX 40 MG PO (19:56)
[2023-11-15] MEDS: PRAVACHOL 80 MG PO (19:56)
[2023-11-15] MEDS: NORVASC 5 MG PO (19:56)
[2023-11-15] MEDS: SINGULAIR 10 MG PO (19:56)
[2023-11-15 21:24] LABS: Glucose - Point of Care 200 mg/dl (70-99)
[2023-11-15] MEDS: LANTUS 0.100000000000000006 UNITS SC (21:40)
[2023-11-16 03:38] VITALS: BP 124/63
[2023-11-16 05:51] VITALS: BMI 27.0
[2023-11-16 06:28] LABS: Hemoglobin 14.9 g/dL (13.0-18.0); Mean Corp Hgb Conc. 32.4 g/dL (33.0-37.0); Mean Corpuscular Volume 89.5 fL (80.0-94.0); Mean Platelet Volume 10.1 fL (7.4-10.4); Platelet Count 252 10^3/uL (130-400); Red Blood Cell Count 5.14 10^6/uL (4.70-6.10); Red Cell Dist. Width 12.9 % (11.5-14.5)
[2023-11-16 07:00] VITALS: BP 110/65
[2023-11-16 07:08] LABS: Blood Urea Nitrogen 20 mg/dl (9-20); Calcium 9.6 mg/dl (8.4-10.2); Carbon Dioxide 31 mmol/L (22-30); Chloride 101 mmol/L (98-107); Estimated Creatinine Clearance 70 ml/min; Glucose 105 mg/dl (70-99); Magnesium 1.9 mg/dl (1.6-2.3); Potassium 3.6 mmol/L (3.5-5.1); Sodium 142 mmol/L (135-145); eGFR > 60.00
[2023-11-16 07:39] LABS: Glucose - Point of Care 107 mg/dl (70-99)
[2023-11-16] MEDS: NOVOLOG FLEXPEN-MODERATE RESISTANCE SC ×2 (07:42→11:57)
[2023-11-16] MEDS: PULMICORT INH ×2 (08:20→20:13)
[2023-11-16] MEDS: LOW STRENGTH ASPIRIN 81 MG PO (08:21)
[2023-11-16] MEDS: PLAVIX 75 MG PO (08:21)
--- NOTE | 2023-11-16 08:26 | W.PN.HOSP.TC ---
Today's Communication/Plan
-
Continue PT OT. DAPT.
Assessment / Plan
Assessment / Plan
78y M with PMH significant for ASCVD, COPD and DM-II who presents to ED complaining of dizziness x 4 days.
Gen: NAD, AAOx3.
Eyes: EOMI, PERRLA, no scleral icterus.
Neck: supple.
CV: RRR, +S1/S2, no m/r/g.
Resp: CTAB, no rales, wheezes, or rhonchi.
Abd: +BS, soft, NT, ND
Skin: No rashes.
Neuro: CN 2-12 intact, ataxia present.
Psych: Normal mood and affect.
Echocardiogram:
Normal left ventricular chamber size. Mild concentric left ventricular
hypertrophy. Normal regional wall motion. Normal left ventricular systolic
function. Left ventricular ejection fraction is 55-60%.
Mild posteriorly directed mitral regurgitation.
No prior study available for comparison.
MRI of the brain:
foci of acute to subacute infarction involving the left cerebellum.
Focal encephalomalacia involving the right frontoparietal junction, compatible with old infarction.
On sagittal images at C3-4, there appears to be a degree of compression of the cervical spinal cord from disc/osteophyte complex. If further evaluation of the cervical spine is desired, consideration for MRI.
Acute ischemic stroke left cerebellum
- Persistent dizziness / room spinning sensation despite meclizine / Valium in the ED.
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
- Checked MRI brain and results as above. Neuro consulted and input appreciated
- Dual antiplatelet therapy aspirin Plavix and high-dose statins
- Reviewed CTA of the head and neck. Borderline significant stenosis of vasculature but not to the degree that requires intervention.
- PT / OT recommend acute rehab. Patient on the other hand wants to go home but undecided if he would go to rehab if accepted. Continue PT OT and case management for discharge disposition
- Discontinue IV fluids, Valium, Meclizine, etc.
Sinus Arrhythmia
ASCVD
- EKG with sinus arrhythmia. No evidence of acute ischemia.
- History of CAD with prior CABG but has had no follow-up in the past 20 years.
- QTc is somewhat prolonged and will hold further azithromycin / avoid other QT prolonging medications.
- Check Echo. Echo reviewed
- Monitor on telemetry.
COPD
Chronic Cough
Hypoxemia
- Continue budesonide. Nebs PRN.
- Hold gabapentin for now.
- SpO2 in the 80s here in the ED, currently on 3L NC O2.
- CXR: No evidence of active cardiopulmonary disease.
- Continue O2 and wean off as able.
- Assess for home oxygen needs upon discharge
Essential hypertension
- Stable. Continue amlodipine with holding parameters.
- Holding chlorthalidone for now.
DM-II
- Blood sugar trending down. Hold PO medications.
-Patient not eating much.
-Decrease from 40 to 10 units basal insulin.
- Follow glucose and cover with SSI as needed.
- Update A1C 8.5
FULL/Lovenox
Anticipated Discharge: Within 24 hours
Subjective/Interval History
-
Date of Service: November 16, 2023
Patient denies any focal weakness or slurred speech.
Objective Data
-
Labs:
Laboratory Results
11/16/23
05:19
WBC 9.0
Hgb 14.9
Hct 46.0
Plt Count 252
Sodium 142
Potassium 3.6
Chloride 101
Carbon Dioxide 31 H
BUN 20
Creatinine 0.8
Glucose 105 H
Calcium 9.6
Vital Signs:
Vital Signs
Temp Pulse Resp BP Pulse Ox
98.7 F 100 16 110/65 91
11/16/23 07:00 11/16/23 08:20 11/16/23 08:20 11/16/23 07:00 11/16/23 08:20
I&O
11/15/23 11/16/23 11/17/23
06:59 06:59 06:59
Intake Total 3430 / 3430 930 / 930
Output Total 1750 / 1750 2200 / 2200
Balance 1680 / 1680 -1270 / -1270
[2023-11-16 11:00] VITALS: BP 101/53; BP 107/69; BP 129/78; PULSE 116; PULSE 130; PULSE 95
[2023-11-16 11:56] LABS: Glucose - Point of Care 127 mg/dl (70-99)
[2023-11-16] MEDS: ANTIVERT 25 MG PO (13:11)
[2023-11-16 15:00] VITALS: BP 156/81
--- NOTE | 2023-11-16 15:09 | CM ---
sr. strategic sourcing manager reviewed patient's chart and spoke with patient regarding recommendation from physical therapy for acute rehab options reviewed but darius declined stating that he wanted to return to home with visiting nurses, case managers will follow
patent progress with physical therapy, per patient his spouse in visiting [facility] at this time and he is home alon4e.
Plan; Patient has declined acute rehab wants to return to home with VN.
[2023-11-16 17:13] LABS: Glucose - Point of Care 171 mg/dl (70-99)
[2023-11-16] MEDS: LOVENOX 40 MG SC (17:41)
[2023-11-16] MEDS: NOVOLOG FLEXPEN-MODERATE RESISTANCE 1 UNITS SC (17:41)
[2023-11-16 19:00] VITALS: BP 115/72; BP 117/74; BP 118/76; PULSE 119; PULSE 122; PULSE 124
--- NOTE | 2023-11-16 19:20 | PTCARENOTE ---
Received pt. at 1900 for change of shift. During change of shift report pt. was alarming on the tele monitor with runs of Vtach. Pt. baseline rhythm is NSR/ST. Pt. assessed and found to be asymptomatic, denying chest pain. Provider notified. EKG
obtained showing NSR w. PACs and a Right BBB. Pt. resting comfortably at this time. Will continue to monitor.
[2023-11-16 20:03] LABS: Hematocrit 43.6 % (39.0-52.0); Hemoglobin 14.9 g/dL (13.0-18.0); Mean Corp Hgb Conc. 34.2 g/dL (33.0-37.0); Mean Corpuscular Hgb 29.4 pg (27.0-31.0); Mean Corpuscular Volume 86.2 fL (80.0-94.0); Mean Platelet Volume 9.4 fL (7.4-10.4); Platelet Count 228 10^3/uL (130-400); Red Blood Cell Count 5.06 10^6/uL (4.70-6.10); Red Cell Dist. Width 12.9 % (11.5-14.5); White Blood Cell Count 9.1 10^3/uL (4.8-10.8)
[2023-11-16 20:14] LABS: ALT (SGPT) 27 U/L (0-50); AST (SGOT) 30 U/L (17-59); Albumin 3.6 g/dl (3.5-5.0); Alkaline Phosphatase 52 U/L (38-126); Blood Urea Nitrogen 24 mg/dl (9-20); Calcium 9.5 mg/dl (8.4-10.2); Carbon Dioxide 36 mmol/L (22-30); Chloride 97 mmol/L (98-107); Estimated Creatinine Clearance 62 ml/min; Glucose 246 mg/dl (70-99); Magnesium 1.7 mg/dl (1.6-2.3); Potassium 4.1 mmol/L (3.5-5.1); Sodium 138 mmol/L (135-145); Total Bilirubin 1.5 mg/dl (0.2-1.3); Total Protein 6.7 g/dl (6.3-8.2); eGFR > 60.00
[2023-11-16] MEDS: NORVASC 5 MG PO (20:27)
[2023-11-16] MEDS: SINGULAIR 10 MG PO (20:27)
[2023-11-16] MEDS: PROTONIX 40 MG PO (20:27)
[2023-11-16] MEDS: PRAVACHOL 80 MG PO (20:27)
[2023-11-16 21:33] LABS: Glucose - Point of Care 216 mg/dl (70-99)
[2023-11-16] MEDS: LANTUS 0.100000000000000006 UNITS SC (22:00)
[2023-11-16 23:00] VITALS: BP 133/82
[2023-11-17 03:00] VITALS: BP 118/66
[2023-11-17 06:00] VITALS: BMI 27.1
[2023-11-17] MEDS: ANTIVERT 25 MG PO (06:29)
[2023-11-17 07:00] VITALS: BP 138/92
[2023-11-17 07:22] LABS: Glucose - Point of Care 174 mg/dl (70-99)
[2023-11-17] MEDS: LOW STRENGTH ASPIRIN 81 MG PO (08:04)
[2023-11-17] MEDS: PLAVIX 75 MG PO (08:04)
[2023-11-17] MEDS: NOVOLOG FLEXPEN-MODERATE RESISTANCE 1 UNITS SC (08:07)
[2023-11-17] MEDS: PULMICORT INH (08:16)
--- NOTE | 2023-11-17 08:58 | W.PN.HOSP.TC ---
Today's Communication/Plan
-
Discharge planning today.
Assessment / Plan
Assessment / Plan
78y M with PMH significant for ASCVD, COPD and DM-II who presents to ED complaining of dizziness x 4 days.
Gen: NAD, AAOx3.
Eyes: EOMI, PERRLA, no scleral icterus.
Neck: supple.
CV: RRR, +S1/S2, no m/r/g.
Resp: CTAB, no rales, wheezes, or rhonchi.
Abd: +BS, soft, NT, ND
Skin: No rashes.
Neuro: CN 2-12 intact, ataxia present.
Psych: Normal mood and affect.
Echocardiogram:
Normal left ventricular chamber size. Mild concentric left ventricular
hypertrophy. Normal regional wall motion. Normal left ventricular systolic
function. Left ventricular ejection fraction is 55-60%.
Mild posteriorly directed mitral regurgitation.
No prior study available for comparison.
MRI of the brain:
foci of acute to subacute infarction involving the left cerebellum.
Focal encephalomalacia involving the right frontoparietal junction, compatible with old infarction.
On sagittal images at C3-4, there appears to be a degree of compression of the cervical spinal cord from disc/osteophyte complex. If further evaluation of the cervical spine is desired, consideration for MRI.
Acute ischemic stroke left cerebellum
- Persistent dizziness / room spinning sensation despite meclizine / Valium in the ED.
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
- Checked MRI brain and results as above. Neuro consulted and input appreciated
- Dual antiplatelet therapy aspirin Plavix and high-dose statins
- Reviewed CTA of the head and neck. Borderline significant stenosis of vasculature but not to the degree that requires intervention.
- PT / OT recommend acute rehab. Patient on the other hand wants to go home but undecided if he would go to rehab if accepted. Continue PT OT and case management for discharge disposition. We had lengthy discussions today about going to rehab
but patient adamantly does not want to go to rehab but he wants to go home with home health. He will be discharged in stable condition today.
- Discontinue IV fluids, Valium, Meclizine, etc.
Sinus Arrhythmia
ASCVD
- EKG with sinus arrhythmia. No evidence of acute ischemia.
- History of CAD with prior CABG but has had no follow-up in the past 20 years.
- QTc is somewhat prolonged and will hold further azithromycin / avoid other QT prolonging medications.
- Check Echo. Echo reviewed
- Monitor on telemetry.
COPD
Chronic Cough
Hypoxemia
- Continue budesonide. Nebs PRN.
- Hold gabapentin for now.
- SpO2 in the 80s here in the ED, currently on 3L NC O2.
- CXR: No evidence of active cardiopulmonary disease.
- Continue O2 and wean off as able.
- Assess for home oxygen needs upon discharge
Essential hypertension
- Stable. Continue amlodipine with holding parameters.
- Holding chlorthalidone for now.
DM-II
- Blood sugar trending down. Hold PO medications.
-Patient not eating much.
-Decrease from 40 to 10 units basal insulin.
- Follow glucose and cover with SSI as needed.
- Update A1C 8.5
FULL/Lovenox
Anticipated Discharge: Today
Subjective/Interval History
-
Date of Service: November 17, 2023
Patient feels well.
Objective Data
-
Vital Signs:
Vital Signs
Temp Pulse Resp BP Pulse Ox
99.1 F 107 16 138/92 90
11/17/23 07:00 11/17/23 08:16 11/17/23 08:16 11/17/23 07:00 11/17/23 08:16
I&O
11/16/23 11/17/23 11/18/23
06:59 06:59 06:59
Intake Total 930 / 930 1500 / 1500
Output Total 2200 / 2200 425 / 425
Balance -1270 / -1270 1075 / 1075
[2023-11-17 10:26] VITALS: BP 131/76; PULSE 113; O2SAT 93
[2023-11-17 11:00] VITALS: BP 149/83
[2023-11-17 12:04] VITALS: BP 140/85; BP 142/84; BP 149/83; PULSE 112; PULSE 118; PULSE 120
[2023-11-17 12:17] LABS: Glucose - Point of Care 208 mg/dl (70-99)
--- NOTE | 2023-11-17 12:31 | VNURNOTE ---
Home Health Liaison met with patient at 1200 to discuss [facility] nurse/therapy, visits, schedule and homebound status. Patient is agreeable and understands that visits at home will be 2-3 x per week to assess and teach medical management.
[facility] brochure provided with contact information. Patient is aware that [facility] will contact him for start of care in 1-2 days after discharge from .
[facility] referral completed in [facility].
--- NOTE | 2023-11-17 13:46 | W.DCSUMMARY ---
Discharge Summary
Discharge Data
Date of Admission: 11/15/23
Date of Discharge: 11/17/23
-
Pending Results: No
Hospital Course
Patient 78 years old male with history of hypertension, dyslipidemia, CAD, COPD, presented to the hospital with sudden onset of dizziness and ataxia. MRI consistent with acute to subacute infarction in the left cerebellum. Neurology consulted.
CTA of the head and neck 50% narrowing of the origin of the innominate artery, 50% narrowing of the origin of the left common carotid artery, 2 additional stenosis of left common carotid approximately 50%, 60% narrowing proximal left subclavian
artery and no other abnormalities. Echocardiogram no intracardiac thrombus. Patient participated with PT and OT and they recommended acute rehab but patient declined and wants to go home. Case management to arrange home health upon discharge.
Patient has been placed on dual antiplatelet therapy for 3 weeks and then afterwards will be on monotherapy and changed high-dose statins. Otherwise, patient hemodynamically stable and neurological improving. He is going to be discharged in stable
condition today.
Discharge duration: 32 minutes
Discharge Plan
-
Patient Disposition: Home with Home Care
Discharge Diagnosis/Procedures: Acute ischemic left cerebellar stroke. Hypertension. Hyperlipidemia. Chronic obstructive pulmonary disease.
Condition: Good
Diet: Low Cholesterol
Activity: As tolerated
Driving Restrictions: As prior to admission
Blood Work: Please PCP to order CBC, BMP within 1 week
Other Services: PT and OT
Referrals:
Dewey Herrera MD [Active] - in two to four weeks
Neri Bui DO [Family Provider] - in less than 1 week
Prescriptions:
New
atorvastatin 80 mg Tablet
80 mg PO QPM 30 Days Qty: 30 0RF
clopidogrel 75 mg Tablet
75 mg PO DAILY 21 Days Qty: 21 0RF
aspirin [Children's Aspirin] 81 mg Tablet,Chewable
81 mg PO DAILY 30 Days Qty: 30 0RF
meclizine 12.5 mg Tablet
12.5 mg PO Q8HPRN PRN (Reason: dizziness) Qty: 10 0RF
Continued
metformin 500 mg Tablet
1,000 mg PO BID
azithromycin 250 mg Tablet
250 mg PO Q48H@2200
glipizide 5 mg Tablet Extended Release 24hr
5 mg PO HS
chlorthalidone 25 mg Tablet
25 mg PO DAILY
amlodipine 5 mg Tablet
5 mg PO HS
omeprazole 20 mg Capsule,Delayed Release(Dr/Ec)
20 mg PO HS
budesonide 0.5 mg/2 mL Suspension For Nebulization
0.5 mg INHALATION R DAILY
montelukast 10 mg Tablet
10 mg PO HS
gabapentin 100 mg Capsule
200 mg PO HS
tadalafil 20 mg Tablet
20 mg PO DAILY PRN (Reason: ED)
Trelegy Ellipta 200-62.5-25 mcg Blister With Device
1 inh INHALATION R DAILY
Tresiba Flextouch
45 unit SC HS
Patient Comments:
11/13/2023, no pharmacy fill data and [facility] records do not specify what strength of Tresiba Flextouch pt. uses.
Prevagen
1 cap PO DAILY
Farxiga
10 mg PO
Discontinued
pravastatin 40 mg Tablet
40 mg PO HS
Discharge Orders:
Discharge Patient (As Directed); Ordered 11/17/23
Ordered By: Franklin Wong
Discharge Date and Time
Discharge Date/Time: 11/17/23 15:30
Print Language: CITIZEN OF [place]
--- NOTE | 2023-11-17 14:29 | CM ---
Patient seen discharge, reports he would like to discharge home today with [facility]. PT recommending walker for patient upon discharge, script for walker in chart. Patient reports his is in [place] and he will need to call a cab for transportation
home. IMM reviewed, signed placed in chart. CM will continue to follow for discharge planning needs.
Plan; home with [facility], walker issued from PT.
[2023-11-17] MEDS: NOVOLOG FLEXPEN-MODERATE RESISTANCE SC (14:49)
[2023-11-17 15:00] VITALS: BP 143/84
--- NOTE | 2023-11-17 15:23 | PTCARENOTE ---
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 Patient assisted with dressing. Removed patient's int, called taxi for patient, they will pick him up in 1 hour from the Discharge lounge in the main lobby.
== END 2023-11-17 15:30 | disposition home health service (06) | DRG 65 ==
LOC: 4 WEST ACU 16:35
PROVIDERS: Nurse Practitioner Gerontology; ADMITTING PHYSICIAN Hospitalist; ATTENDING PHYSICIAN Hospitalist; EMERGENCY PHYSICIAN Student in an Organized Health Care Education/Training Program; FAMILY PHYSICIAN Family Medicine; OTHER PHYSICIAN Psychiatry & Neurology Neurology
DX: I63.9 Cerebral infarction, unspecified (principal); G95.20 Unspecified cord compression; E87.6 Hypokalemia; E86.0 Dehydration; E11.65 Type 2 diabetes mellitus with hyperglycemia; Z87.891 Personal history of nicotine dependence; J45.991 Cough variant asthma; J44.89 Other specified chronic obstructive pulmonary disease; I10 Essential (primary) hypertension; I25.10 Atherosclerotic heart disease of native coronary artery without angina pectoris; E78.5 Hyperlipidemia, unspecified; I34.0 Nonrheumatic mitral (valve) insufficiency; I65.22 Occlusion and stenosis of left carotid artery; I95.1 Orthostatic hypotension; R09.02 Hypoxemia; Z79.82 Long term (current) use of aspirin; Z86.73 Personal history of transient ischemic attack (TIA), and cerebral infarction without residual deficits
CPT/HCPCS: 70450; 70496; 70498; 70551; 71046; 80048; 80053; 80061; 82962; 83036; 83735; 84443; 84484; 85025; 85027; 92610; 93005; 93306; 94640; 96361; 96374; 96375; 97112; 97116; 97163; 97166; 97530; 97535; 99285; Q9967